=== PATIENT | female | born 1965 ===

== ENCOUNTER 2019-07-17 21:20 | Emergency (ER) | payer SELFPAY ==
[~2019-07-17] VITALS: Ht 167.6 cm; Wt 63.5 kg
--- NOTE | 2019-07-18 16:47 | EKG ---
[facility] [address] [facility] [place], [place] [address] Signed Normal sinus rhythm Prolonged QT Abnormal ECG No previous ECGs available Confirmed by MARÍA ANDERSON DO ([id number]) on 07/18/2019 4:46:58 PM Electronically Signed By: MARÍA ANDERSON DO 07/18/19 1647 PATIENT NAME: GRAY TEJADA Electrocardiogram DATE OF : 61 PHYSICIAN: MARÍA ANDERSON DO REPORT #: [id number] REPORT IS CONFIDENTIAL AND NOT TO BE RELEASED WITHOUT AUTHORIZATION
== END 2019-07-18 09:40 | disposition home or self-care (01) ==
LOC: ED 21:20 → EDSEX 21:21 → EDBD 21:21 → ED 21:21
DX: T42.6X2A Poisoning by other antiepileptic and sedative-hypnotic drugs, intentional self-harm, initial encounter (principal); F32.9 Major depressive disorder, single episode, unspecified; F17.200 Nicotine dependence, unspecified, uncomplicated
CPT/HCPCS: 51701; 80053; 80176; 81001; 84443; 85025; 93005; 93010; 99284-25; G0480; J7030